=== PATIENT | male | born 1985 | race Caucasian/White ===

== ENCOUNTER 2021-09-09 01:53 | Emergency (ER) | payer MEDICAID, SELFPAY ==
--- NOTE | ~2021-09-09 | XR_ITS ---
EXAMINATION: XR CHEST CLINICAL INFORMATION: Chest pain COMPARISON: None TECHNIQUE: Frontal view of the chest was obtained. FINDINGS: The lungs are well expanded. There is no focal consolidation, edema, or effusion. No pneumothorax. The cardiomediastinal silhouette is within normal limits. No acute osseous abnormality. XR/XR chest 1V IMPRESSION: Clear lungs.
--- NOTE | 2021-09-09 01:56 | ECG_ITS ---
Test Reason : CP AFTER DRUG USE Blood Pressure : / mmHG Vent. Rate : 098 BPM Atrial Rate : 098 BPM P-R Int : 128 ms QRS Dur : 100 ms QT Int : 366 ms P-R-T Axes : 042 -25 028 degrees QTc Int : 467 ms Normal sinus rhythm Minimal voltage criteria for LVH, may be normal variant ( R in aVL ) Borderline ECG No previous ECGs available Referred By: Generic ED Physician Electronically Signed By:JJ GAMBLE MD
[2021-09-09 01:58] VITALS: BP 181/100; PULSE 104; RESP 20; TEMP 36.6; O2SAT 98; BMI 27.9
--- NOTE | 2021-09-09 02:09 | ED.CHESTPAIN ---
HPI - Chest Pain General Chief Complaint: Chest Pain Stated Complaint: Drug Use/Chest pain Time Seen by Provider: 09/09/21 02:04 Source: patient Mode of arrival: ambulatory Limitations: no limitations History of Present Illness HPI narrative: Patient comes emergency room complaining of chest pressure that started 15 minutes after using cocaine. Patient is concerned that the cocaine tasted different. Patient also admits to using fentanyl prior to arrival. Patient states that he feels weak, states that he has numbness and tingling in all fingertips. Related Data Allergies Allergy/AdvReac Type Severity Reaction Status Date / Time No Known Allergies Allergy Verified 09/09/21 02:00 Review of Systems Review of Systems: Constitutional : No Weight loss, No Fever, No Chills, No Night Sweats, No Fatigue, complaining of weakness ENT/Mouth : No Hearing loss, No Ear Pain, No Nasal Congestion, No Sinus Pain, No Hoarseness, No sore throat, No Rhinorrhea, No Swallowing Difficulty Eyes: No Eye Pain, No Swelling, No Redness, No Foreign Body, No Discharge, No Vision Changes Cardiovascular : Complaining of chest pressure, chest pain, No SOB, No Dyspnea on Exertion, No Orthopnea, No Edema, No Palpitations Respiratory : No Cough, No Sputum, No Wheezing, No Smoke Exposure, No Dyspnea Gastrointestinal : No Nausea, No Vomiting, No Diarrhea, No Constipation, No abdominal Pain, No Hematochezia, No Melena Genitourinary : no irregular bleeding, No Dysuria, No Urinary Frequency, No Hematuria, No Urinary Incontinence, No Urgency, No Flank Pain, No Urinary Flow Changes, No Hesitancy Musculoskeletal : No joint pain, No Myalgias, No Joint Swelling Skin : No Skin Lesions, No rash Neuro : No Weakness, No Numbness, No Loss of Consciousness, No Dizziness, No Headache, complaining of paresthesias in bilateral upper lower extremities Psych : No Anxiety/Panic, No Depression, No SI/HI/AH/VH, No Social Issues, Heme/Lymph: No Bruising, No Bleeding,No Lymphadenopathy Endocrine : No Polyuria, No Polydipsia, No Temperature Intolerance PMFSH Past Medical History Medical History Substance abuse Physical Exam Vital Signs: Vital Signs: Last Vital Signs Temp 97.9 F 09/09/21 01:58 Pulse 104 H 09/09/21 01:58 Resp 20 09/09/21 01:58 BP 181/100 H 09/09/21 01:58 Pulse Ox 98 09/09/21 01:58 BMI result Body Mass Index 27.9 Const: Other: Appearance: Alert. Oriented X3. No acute distress. Well-appearing Eyes: Pupils equal, round and reactive to light. ENT: Pharynx normal. Neck: Normal inspection. Neck supple. No lymph nodes noted. No crepitus CVS: Normal heart rate and rhythm. Pulses normal. Normal S1 and S2 Respiratory: No respiratory distress. Breath sounds normal. No Wheezing. No rales Abdomen: Soft and nontender. No rigidity. No distention. Skin: Skin warm and dry. Normal skin color. Normal skin turgor. Extremities: No lower extremity edema. No Lacerations. No Rash Neuro: Oriented X 3. No motor deficit. No sensory deficit. Moving all extremities. No slurred speech. CN 2 through 12 grossly intact Psych: calm, cooperative, normal affect Course Course Course Narrative: EKG does not show any ischemic changes. Although labs pending. Aspirin has been ordered. I was informed by the patient's nurse that the patient was found with all of his belongings in the bathroom. Patient was in the bathroom for a long time, unclear how much time. However, it is suspected that patient used drugs. Patient ambulated towards the exit and eloped Discharge Plan Discharge Clinical Impression: Chest pain, Substance abuse Patient Disposition: Elopement
--- NOTE | 2021-09-09 02:38 | PC.NURSE ---
pt has been in the bathroom by the pod door for quite some time, pt also brought all his belongings (clothing and duffal bag.) this rn knocked on the bathroom door pt states he was not going to leave his belongings in the room and so he took them with him. pt states he didnt want anyone going thur his belongings. pt came out of the bathroom states he did not use while in the bathroom. pupils constricted, pt alert oriented, pt used drugs before arrival per pt. provider and security called and aware. pt left on his own doing.
--- NOTE | 2021-09-09 02:41 | PC.NURSE ---
pt left without having his labs drawn and no medications given.
== END 2021-09-09 02:39 | disposition left against medical advice (07) ==
LOC: HO.ED 02:39
PROVIDERS: Emergency Provider Emergency Medicine
DX: R07.89 Other chest pain (principal); F14.10 Cocaine abuse, uncomplicated
CPT/HCPCS: 71045; 93005; 99283; 99284